=== PATIENT | male | born 1955 | race American Indian/Alaskan Native ===

== ENCOUNTER 2019-12-27 19:17 | Emergency (ER) | payer SELFPAY ==
[2019-12-27 19:26] VITALS: BP 155/90
== END 2019-12-27 22:00 | disposition left against medical advice (07) ==
LOC: ED 19:17
DX: R07.89 Other chest pain (principal); Z53.21 Procedure and treatment not carried out due to patient leaving prior to being seen by health care provider
CPT/HCPCS: 93005; 93010